=== PATIENT | female | born 1970 | race Caucasian/White ===

== ENCOUNTER 2017-08-07 10:48 | Emergency (ER) | payer MEDICAID ==
[~2017-08-07] VITALS: Ht 167.6 cm; Wt 84.1 kg
[2017-08-07] MEDS ORDERED: METHOCARBAMOL 500 MG TABLET PO ONE (11:30)
[2017-08-07] MEDS ORDERED: KETOROLAC TROMETHAMINE 30 MG/ML VIAL IM ONE (11:30)
[2017-08-07] MEDS ORDERED: LIDOCAINE HCL 5% TRANSDERMAL PATCH TD ONE (11:30)
[2017-08-07 12:18] VITALS: BP 116/69
== END 2017-08-07 12:22 | disposition home or self-care (01) ==
LOC: EMS 10:49
DX: M54.5 Low back pain (principal)
CPT/HCPCS: 96372; 99283; J1885

== ENCOUNTER 2018-01-16 23:07 | Emergency (ER) | payer MEDICAID ==
[~2018-01-16] VITALS: Ht 170.2 cm; Wt 86.4 kg
[2018-01-17] MEDS ORDERED: DEXAMETHASONE 4 MG TABLET PO ONE (00:15)
[2018-01-17 02:30] VITALS: BP 126/68
== END 2018-01-17 02:48 | disposition home or self-care (01) ==
LOC: EMS 23:08
DX: J02.9 Acute pharyngitis, unspecified (principal)
CPT/HCPCS: 99282; J8540

== ENCOUNTER 2018-01-20 02:52 | Emergency (ER) | payer MEDICAID ==
[~2018-01-20] VITALS: Ht 157.5 cm; Wt 84.1 kg
[2018-01-20] MEDS ORDERED: ALBUTEROL SULFATE 2.5 MG/0.5 ML NEB SOLUTION NEB ONE (04:00)
[2018-01-20] MEDS ORDERED: IPRATROPIUM BROMIDE 0.5 MG/2.5 ML NEB SOLUTION NEB ONE (04:00)
[2018-01-20 05:20] VITALS: BP 124/78
== END 2018-01-20 05:52 | disposition home or self-care (01) ==
LOC: EMS 02:53
DX: J06.9 Acute upper respiratory infection, unspecified (principal)
CPT/HCPCS: 71046; 94640; 99284; J7613

== ENCOUNTER 2019-10-28 23:45 | Emergency (ER) | payer MEDICAID ==
[~2019-10-28] VITALS: Ht 162.6 cm; Wt 86.4 kg
[2019-10-29 00:28] LABS: APPEARANCE,URINE TURBID (CLEAR); GLUCOSE, URINE (UA) 100 mg/dL (NEGATIVE); KETONES,URINE 40 mg/dL (NEGATIVE); LEUKOCYTE ESTERASE ,URINE LARGE (NEGATIVE); NITRATE,URINE POSITIVE (NEGATIVE); OCCULT BLOOD,URINE LARGE (NEGATIVE); PROTEIN,URINE SEE CONFIRM (NEGATIVE); UROBILINOGEN,URINE >=8.0 mg/dL (<=1.0)
[2019-10-29 00:29] LABS: BILIRUBIN,URINE PRELIM. POSITIVE (NEGATIVE)
[2019-10-29] MEDS ORDERED: PHENAZOPYRIDINE HCL 100 MG TABLET PO ONE (00:45)
[2019-10-29] MEDS ORDERED: CEPHALEXIN MONOHYDRATE 500 MG CAPSULE PO ONE (00:45)
[2019-10-29 01:01] LABS: GLUCOSE,POINT OF CARE 112 MG/DL (70-110)
[2019-10-29 01:05] LABS: BACTERIA,URINE Moderate /HPF (None Seen); RBC,URINE Full Field /HPF (0-2); WBC,URINE 51-100 /HPF (0-5)
[2019-10-29 01:06] LABS: SQUAMOUS EPITHELIAL CELL,UR Few /LPF (None Seen)
[2019-10-29 01:07] LABS: SULFOSALICYLIC ACID,URINE 4+ (Negative)
[2019-10-29 01:41] VITALS: BP 124/89
== END 2019-10-29 02:01 | disposition home or self-care (01) ==
LOC: EMS 23:47
DX: N39.0 Urinary tract infection, site not specified (principal)
CPT/HCPCS: 87086

== ENCOUNTER 2020-01-31 19:56 | Emergency (ER) | payer SELFPAY ==
[~2020-01-31] VITALS: Ht 144.8 cm; Wt 81.8 kg
[2020-01-31] MEDS ORDERED: LIDOCAINE 5% TRANSDERMAL PATCH TD ONE (22:30)
[2020-01-31 22:45] VITALS: BP 135/79
== END 2020-01-31 22:55 | disposition home or self-care (01) ==
LOC: EMS 19:56
DX: S76.012A Strain of muscle, fascia and tendon of left hip, initial encounter (principal); X50.9XXA Other and unspecified overexertion or strenuous movements or postures, initial encounter; Y93.89 Activity, other specified; Y92.89 Other specified places as the place of occurrence of the external cause; Y99.8 Other external cause status
CPT/HCPCS: 73503